=== PATIENT | female | born 1955 | race Caucasian/White ===

== ENCOUNTER 2017-12-15 06:29 | Day surgery (SDC) | payer OTHER ==
[~2017-12-15] VITALS: Ht 170.2 cm; Wt 63.0 kg
[2017-12-15] MEDS ORDERED: BENZOCAINE 20% 50 MCG/SPRAY 57 GM TP ONE (06:30)
[2017-12-15] MEDS ORDERED: LIDOCAINE 4% 50 ML SOLUTION TP ONE (06:30)
[2017-12-15] MEDS ORDERED: SODIUM CHLORIDE 0.9% 1,000 ML IV ONE ×2 (06:30→06:36)
[2017-12-15] MEDS ORDERED: LIDOCAINE 2% 30 ML JELLY TP ONE (06:30)
[2017-12-15] MEDS ORDERED: ALBUTEROL SULFATE 2.5 MG/0.5 ML NEB SOLUTION NEB ONE (06:30)
[2017-12-15] MEDS ORDERED: FLUT16H NASAL (06:46)
[2017-12-15] MEDS ORDERED: PROM6.2522 PO (06:46)
[2017-12-15] MEDS ORDERED: MESA1S PR (06:46)
[2017-12-15] MEDS ORDERED: BACL10TA PO (06:46)
[2017-12-15] MEDS ORDERED: OMEP20 PO (06:46)
[2017-12-15] MEDS ORDERED: MIRT15 PO (06:46)
[2017-12-15] MEDS ORDERED: BECL10.62 IH (06:46)
[2017-12-15] MEDS ORDERED: MONT10TA21 PO (06:46)
[2017-12-15] MEDS ORDERED: MIDAZOLAM HCL 2 MG/2 ML VIAL ONE (07:58)
[2017-12-15] MEDS ORDERED: FentaNYL CITRATE-PF 100 MCG/2 ML VIAL ONE (07:58)
[2017-12-15] MEDS ORDERED: MethylPREDNISolone SOD SUCC 125 MG/2 ML VIAL IVP ONE (08:45)
[2017-12-15] MEDS ORDERED: MethylPREDNISolone SOD SUCC 125 MG/2 ML VIAL ONE (08:57)
[2017-12-15] MEDS ORDERED: OXYGEN THERAPY IH SCH (20:00)
== END 2017-12-15 11:40 | disposition home or self-care (01) ==
LOC: SURGERY 06:29
PROVIDERS: ATTEND Internal Medicine Critical Care Medicine
DX: J38.4 Edema of larynx (principal); B37.0 Candidal stomatitis; J98.8 Other specified respiratory disorders; J43.9 Emphysema, unspecified; M19.90 Unspecified osteoarthritis, unspecified site; F17.210 Nicotine dependence, cigarettes, uncomplicated; Z88.6 Allergy status to analgesic agent; Z88.5 Allergy status to narcotic agent; Z98.890 Other specified postprocedural states; Z79.899 Other long term (current) drug therapy
CPT/HCPCS: 31623; 31624; 71045; 87070; 87205; 87206; 87220; 88108; 88312; J2250; J2930; J3010; J7030

== ENCOUNTER 2022-07-17 06:04 | Day surgery (SDC) | payer OTHER ==
[~2022-07-17] VITALS: Ht 172.7 cm; Wt 64.5 kg
[~2022-07-17 06:04] MED LIST: BACL10TA PO; BECL10.62 IH; FLUT16SP NASAL; MESA1S PR; MIRT-89 PO; MONT-35 PO; OMEP20 PO; PROM5L PO
[2022-07-17] MEDS ORDERED: LIDOCAINE 4% 50 ML SOLUTION TP ONE (06:05)
[2022-07-17] MEDS ORDERED: BENZOCAINE 20% 50 MCG/SPRAY 57 GM TP ONE (06:05)
[2022-07-17] MEDS ORDERED: LIDOCAINE 2% 11 ML JELLY TP ONE (06:05)
[2022-07-17] MEDS ORDERED: ALBUTEROL SULFATE 2.5 MG/0.5 ML NEB SOLUTION NEB ONE (06:05)
[2022-07-17] MEDS ORDERED: SODIUM CHLORIDE 0.9% 1,000 ML ONE (06:53)
[2022-07-17] MEDS ORDERED: MIDAZOLAM HCL 2 MG/2 ML VIAL ONE (07:34)
[2022-07-17] MEDS ORDERED: FentaNYL CITRATE PF 100 MCG/2 ML VIAL ONE (07:35)
[2022-07-17] MEDS ORDERED: SODIUM CHLORIDE 0.9% 1,000 ML IV ONE (07:45)
[2022-07-17] MEDS ORDERED: MethylPREDNISolone SOD SUCC 125 MG/2 ML VIAL ONE (09:26)
[2022-07-17] MEDS ORDERED: MethylPREDNISolone SOD SUCC 125 MG/2 ML VIAL IVP ONE (09:30)
== END 2022-07-17 10:55 | disposition home or self-care (01) ==
LOC: SURGERY 06:04
PROVIDERS: ATTEND Internal Medicine Critical Care Medicine
DX: J38.4 Edema of larynx (principal); B37.0 Candidal stomatitis; Z88.6 Allergy status to analgesic agent; Z88.8 Allergy status to other drugs, medicaments and biological substances; F17.210 Nicotine dependence, cigarettes, uncomplicated; Z98.890 Other specified postprocedural states; Z90.710 Acquired absence of both cervix and uterus; J45.909 Unspecified asthma, uncomplicated; J43.9 Emphysema, unspecified; Z87.442 Personal history of urinary calculi; Z85.42 Personal history of malignant neoplasm of other parts of uterus
CPT/HCPCS: 31623; 88112; 87206; 87101; 87220; 87070; 31624; 94640; 71045; 87015; J3010; J2250; J2930; Q9967; J7030; J7613; Z7610

== ENCOUNTER 2024-04-26 07:10 | Day surgery (SDC) | payer MEDICARE, OTHER ==
[~2024-04-26] VITALS: Ht 172.7 cm; Wt 63.6 kg
[2024-04-26] MEDS: SODIUM CHLORIDE 0.9% 1,000 ML IV ONE (08:23)
[2024-04-26] MEDS ORDERED: MIDAZOLAM HCL 2 MG/2 ML VIAL ONE (09:00)
[2024-04-26] MEDS ORDERED: FentaNYL CITRATE PF 100 MCG/2 ML VIAL ONE (09:00)
[2024-04-26] MEDS ORDERED: FAMO20 PO (09:33)
[2024-04-26] MEDS ORDERED: DULO-114 PO (09:33)
[2024-04-26 10:18] VITALS: PULSE 100; RESP 24; O2SAT 94
[2024-04-26] MEDS ORDERED: MethylPREDNISolone SOD SUCC 125 MG/2 ML VIAL ONE (10:33)
[2024-04-26] MEDS: MethylPREDNISolone SOD SUCC 125 MG/2 ML VIAL IVP ONE (10:52)
[2024-04-26] MEDS ORDERED: BENZOCAINE 20% 50 MCG/SPRAY 57 GM ONE (12:00)
[2024-04-26] MEDS ORDERED: LIDOCAINE 4% 50 ML SOLUTION ONE (12:00)
[2024-04-26] MEDS ORDERED: ALBUTEROL SULFATE 2.5 MG/0.5 ML NEB SOLUTION NEB ONE (12:00)
[2024-04-26] MEDS ORDERED: LIDOCAINE 2% 11 ML JELLY ONE (12:00)
== END 2024-04-26 12:40 | disposition home or self-care (01) ==
LOC: SURGERY 07:10
PROVIDERS: ATTEND Internal Medicine Critical Care Medicine
DX: R05.3 Chronic cough (principal); J38.4 Edema of larynx; B37.0 Candidal stomatitis; R06.2 Wheezing; R04.2 Hemoptysis; R91.8 Other nonspecific abnormal finding of lung field; J47.9 Bronchiectasis, uncomplicated; E21.3 Hyperparathyroidism, unspecified; J44.9 Chronic obstructive pulmonary disease, unspecified; F17.210 Nicotine dependence, cigarettes, uncomplicated; Z85.41 Personal history of malignant neoplasm of cervix uteri; Z85.42 Personal history of malignant neoplasm of other parts of uterus; Z87.11 Personal history of peptic ulcer disease; Z90.710 Acquired absence of both cervix and uterus; Z98.890 Other specified postprocedural states; Z98.818 Other dental procedure status; Z79.899 Other long term (current) drug therapy
CPT/HCPCS: 31623; 99156; 99157; 31624; 94640; 71045; J3010; J2250; J2919; J7613; Z7610